=== PATIENT | male | born 1955 | race Caucasian/White ===

== ENCOUNTER 2023-06-30 07:59 | Emergency (ER) | payer MEDICARE ==
[~2023-06-30] VITALS: Ht 177.8 cm; Wt 61.2 kg
[2023-06-30 08:02] VITALS: BP_SYST 99; PULSE 120; RESP 18; TEMP 97.8; O2SAT 94
[2023-06-30] MEDS ORDERED: NACL 0.9% 1,000 ML IV ONE ×3 (08:15→13:30)
[2023-06-30 08:53] LABS: HEMATOCRIT 32.7 % (36-54); HEMOGLOBIN 9.9 g/dL (14.0-18.0); MEAN CORPUSCULAR HEMOGLOBIN 25 pg (27-31); MEAN CORPUSCULAR HGB CONC 30 % (32-36); MEAN CORPUSCULAR VOLUME 84 fL (79.0-98.0); PLATELET COUNT (AUTO) 79 K/uL (130-430); RED BLOOD CELL COUNT(AUTO) 3.91 MIL/uL (4.2-6.2); RED CELL DISTRIBUTION WIDTH 19.5 % (9.0-15.0)
[2023-06-30] MEDS ORDERED: ONDANSETRON HCL 4 MG/2 ML VIAL IVP ONE (09:00)
[2023-06-30] MEDS ORDERED: MORPHINE 4 MG INJ. 4 MG/ML VIAL IVP ONE (09:00)
[2023-06-30 09:08] LABS: ANION GAP 9 (5-15); CALCIUM 8.1 mg/dL (8.4-11.0); CARBON DIOXIDE 25 mmol/L (23-29); CHLORIDE 91 mmol/L (98-107); GLUCOSE 128 mg/dL (74-106); POTASSIUM 3.4 mmol/L (3.5-5.1); SODIUM SERUM 125 mmol/L (136-145); UREA NITROGEN, BLOOD 13 mg/dL (8-21); WHITE BLOOD COUNT (AUTO) 33.4 K/uL (4.8-10.8)
[2023-06-30 09:09] LABS: GFR AFRICAN AMERICAN 107 mL/min (>90); GFR NON AFRICAN-AMERICAN 89 mL/min (>90)
[2023-06-30 09:14] LABS: ALANINE AMINOTRANSFERASE 6 U/L (12-78); ALBUMIN 1.8 g/dL (3.4-4.8); ASPARTATE AMINOTRANSFERASE 28 U/L (10-37); LACTATE DEHYDROGENASE 214 U/L (85-227); LIPASE 19 U/L (16-77); PHOSPHORUS 2.8 mg/dL (2.7-4.5); TOTAL BILIRUBIN 0.4 mg/dL (0.0-1.0); TOTAL PROTEIN, SERUM 5.7 g/dL (6.4-8.3); URIC ACID 7.2 mg/dL (2.4-7.0)
[2023-06-30 09:20] LABS: INFLUENZA TYPE A Negative (NEGATIVE); INFLUENZA TYPE B NEGATIVE (NEGATIVE)
[2023-06-30 09:21] LABS: ANISOCYTOSIS 1+; ATYPICAL LYMPHOCYTES % 24 % (0-0); BAND % (MANUAL) 6 % (0-6); BASOPHILS % (MANUAL) 0 % (0-2); EOSINOPHILS % (MANUAL) 0 % (0-7); HYPOCHROMASIA SLIGHT; INR 1.1 (0.80-1.20); LYMPHOCYTES % (MANUAL) 35 % (20-46); MONOCYTES % (MANUAL) 4 % (0-11); PLATELET ESTIMATE DECREASED (ADEQUATE); PROTHROMBIN TIME 11.3 SECS (9.5-12.5); SMUDGE CELLS FEW
[2023-06-30] MEDS ORDERED: VANCOMYCIN HCL 1.25 GM/NS 250 ML IV ONE (09:45)
[2023-06-30] MEDS ORDERED: PIPERACILLIN/TAZO 3.375 GM in NS 50 ML IV ONE (09:45)
[2023-06-30] MEDS ORDERED: iohexoL 350 mgI/mL, 100 ML INFUS..BTL IV ONE (09:51)
[2023-06-30] MEDS ORDERED: PIPERACILLIN/TAZOBACTAM 3.375 GM/VIAL (ZOSYN) IV ONE (09:58)
[2023-06-30] MEDS ORDERED: POTASSIUM CHLORIDE 20 MEQ/PKT PACKET PO ONE (10:00)
[2023-06-30] MEDS ORDERED: HYDROcodone/ACETAMIN 10-325 MG TAB PO ONE (13:30)
[2023-06-30] MEDS ORDERED: HYDROcodone/ACETAMIN 5-325 MG TAB (NORCO/ VICODIN) PO ONE (14:15)
[2023-06-30] MEDS ORDERED: methylPREDNISolone SOD SUCC/PF 62.5 MG/ML VIAL IVP ONE (14:15)
[2023-06-30 17:51] VITALS: BP_SYST 100; PULSE 120; RESP 18; TEMP 97.8; O2SAT 94
== END 2023-06-30 17:53 | disposition short-term general hospital (02) ==
LOC: SED 07:59
DX: J18.9 Pneumonia, unspecified organism (principal); R53.1 Weakness; D72.829 Elevated white blood cell count, unspecified; D64.9 Anemia, unspecified; Z85.6 Personal history of leukemia; I10 Essential (primary) hypertension; Z79.899 Other long term (current) drug therapy; Z20.822 Contact with and (suspected) exposure to COVID-19
CPT/HCPCS: 99285; 71275; 96365; 96375; 71045; 96367; 96361; 96366; 87426; 85027; 80053; 83615; 83690; 83735; 84100; 84550; 85007; 85610; 85730; 87040; 84484; 36415; 93005; 74177; 83605; 87804 ×2; 76376; Q9967; J2930; J2405; J2543; J3370; J2270; J7030